=== PATIENT | male | born 1945 | race Caucasian/White ===

== ENCOUNTER → 2020-05-25 | Outpatient (CLI) | payer OTHER | LOC: HYPER 13:48 | PROVIDERS: ATTEND Emergency Medicine | DX: T84.53XA Infection and inflammatory reaction due to internal right knee prosthesis, initial encounter (principal); E11.622 Type 2 diabetes mellitus with other skin ulcer; L97.811 Non-pressure chronic ulcer of other part of right lower leg limited to breakdown of skin; E11.69 Type 2 diabetes mellitus with other specified complication; M86.651 Other chronic osteomyelitis, right thigh; I48.91 Unspecified atrial fibrillation; I10 Essential (primary) hypertension; Z79.84 Long term (current) use of oral hypoglycemic drugs; Z79.01 Long term (current) use of anticoagulants; Z96.652 Presence of left artificial knee joint; Y83.1 Surgical operation with implant of artificial internal device as the cause of abnormal reaction of the patient, or of later complication, without mention of misadventure at the time of the procedure; Y92.238 Other place in hospital as the place of occurrence of the external cause ==

== ENCOUNTER → 2020-06-05 | Outpatient (CLI) | payer OTHER | LOC: HYPER 08:56 | PROVIDERS: ATTEND Emergency Medicine Emergency Medical Services | DX: T84.53XD Infection and inflammatory reaction due to internal right knee prosthesis, subsequent encounter (principal); E11.69 Type 2 diabetes mellitus with other specified complication; M86.651 Other chronic osteomyelitis, right thigh; E11.622 Type 2 diabetes mellitus with other skin ulcer; L97.812 Non-pressure chronic ulcer of other part of right lower leg with fat layer exposed; L97.112 Non-pressure chronic ulcer of right thigh with fat layer exposed; I10 Essential (primary) hypertension; I48.0 Paroxysmal atrial fibrillation; Z79.84 Long term (current) use of oral hypoglycemic drugs; Z79.01 Long term (current) use of anticoagulants; Y83.1 Surgical operation with implant of artificial internal device as the cause of abnormal reaction of the patient, or of later complication, without mention of misadventure at the time of the procedure ==

== ENCOUNTER → 2020-06-06 | Outpatient (CLI) | payer OTHER | LOC: HYPER 08:14 | PROVIDERS: ATTEND Specialist | DX: T84.53XD Infection and inflammatory reaction due to internal right knee prosthesis, subsequent encounter (principal); E11.622 Type 2 diabetes mellitus with other skin ulcer; L97.811 Non-pressure chronic ulcer of other part of right lower leg limited to breakdown of skin; E11.69 Type 2 diabetes mellitus with other specified complication; M86.651 Other chronic osteomyelitis, right thigh; I10 Essential (primary) hypertension; I48.0 Paroxysmal atrial fibrillation; Z79.84 Long term (current) use of oral hypoglycemic drugs; Z79.01 Long term (current) use of anticoagulants ==

== ENCOUNTER → 2020-06-07 | Outpatient (CLI) | payer OTHER | LOC: HYPER 10:00 | PROVIDERS: ATTEND Emergency Medicine | DX: T84.53XD Infection and inflammatory reaction due to internal right knee prosthesis, subsequent encounter (principal); E11.622 Type 2 diabetes mellitus with other skin ulcer; L97.811 Non-pressure chronic ulcer of other part of right lower leg limited to breakdown of skin; E11.69 Type 2 diabetes mellitus with other specified complication; M86.651 Other chronic osteomyelitis, right thigh; I10 Essential (primary) hypertension; I48.0 Paroxysmal atrial fibrillation; Z79.84 Long term (current) use of oral hypoglycemic drugs; Z79.01 Long term (current) use of anticoagulants ==

== ENCOUNTER → 2020-06-08 | Outpatient (CLI) | payer OTHER | LOC: HYPER 17:26 | PROVIDERS: ATTEND Emergency Medicine | DX: T84.53XD Infection and inflammatory reaction due to internal right knee prosthesis, subsequent encounter (principal); E11.622 Type 2 diabetes mellitus with other skin ulcer; L97.811 Non-pressure chronic ulcer of other part of right lower leg limited to breakdown of skin; E11.69 Type 2 diabetes mellitus with other specified complication; M86.651 Other chronic osteomyelitis, right thigh; I10 Essential (primary) hypertension; I48.0 Paroxysmal atrial fibrillation; Z79.84 Long term (current) use of oral hypoglycemic drugs; Z79.01 Long term (current) use of anticoagulants ==

== ENCOUNTER → 2020-06-09 | Outpatient (CLI) | payer OTHER | LOC: HYPER 15:21 | PROVIDERS: ATTEND Emergency Medicine | DX: T84.53XD Infection and inflammatory reaction due to internal right knee prosthesis, subsequent encounter (principal); E11.622 Type 2 diabetes mellitus with other skin ulcer; L97.811 Non-pressure chronic ulcer of other part of right lower leg limited to breakdown of skin; E11.69 Type 2 diabetes mellitus with other specified complication; M86.651 Other chronic osteomyelitis, right thigh; I10 Essential (primary) hypertension; I48.0 Paroxysmal atrial fibrillation; Z79.84 Long term (current) use of oral hypoglycemic drugs; Z79.01 Long term (current) use of anticoagulants ==

== ENCOUNTER → 2020-06-12 | Outpatient (CLI) | payer OTHER | LOC: HYPER 10:00 | PROVIDERS: ATTEND Emergency Medicine Emergency Medical Services | DX: T84.53XD Infection and inflammatory reaction due to internal right knee prosthesis, subsequent encounter (principal); E11.622 Type 2 diabetes mellitus with other skin ulcer; L97.115 Non-pressure chronic ulcer of right thigh with muscle involvement without evidence of necrosis; L97.811 Non-pressure chronic ulcer of other part of right lower leg limited to breakdown of skin; E11.69 Type 2 diabetes mellitus with other specified complication; M86.651 Other chronic osteomyelitis, right thigh; I10 Essential (primary) hypertension; I48.91 Unspecified atrial fibrillation; Z79.84 Long term (current) use of oral hypoglycemic drugs; Z79.01 Long term (current) use of anticoagulants; Y83.1 Surgical operation with implant of artificial internal device as the cause of abnormal reaction of the patient, or of later complication, without mention of misadventure at the time of the procedure ==

== ENCOUNTER → 2020-06-13 | Outpatient (CLI) | payer OTHER | LOC: HYPER 10:22 | PROVIDERS: ATTEND Specialist | DX: T84.53XD Infection and inflammatory reaction due to internal right knee prosthesis, subsequent encounter (principal); E11.622 Type 2 diabetes mellitus with other skin ulcer; L97.811 Non-pressure chronic ulcer of other part of right lower leg limited to breakdown of skin; E11.69 Type 2 diabetes mellitus with other specified complication; M86.651 Other chronic osteomyelitis, right thigh; I10 Essential (primary) hypertension; I48.0 Paroxysmal atrial fibrillation; Z79.84 Long term (current) use of oral hypoglycemic drugs; Z79.01 Long term (current) use of anticoagulants ==

== ENCOUNTER → 2020-06-14 | Outpatient (CLI) | payer OTHER | LOC: HYPER 11:23 | PROVIDERS: ATTEND Emergency Medicine | DX: T84.53XD Infection and inflammatory reaction due to internal right knee prosthesis, subsequent encounter (principal); E11.622 Type 2 diabetes mellitus with other skin ulcer; L97.815 Non-pressure chronic ulcer of other part of right lower leg with muscle involvement without evidence of necrosis; E11.69 Type 2 diabetes mellitus with other specified complication; M86.651 Other chronic osteomyelitis, right thigh; I48.0 Paroxysmal atrial fibrillation; I10 Essential (primary) hypertension; Z79.84 Long term (current) use of oral hypoglycemic drugs; Z79.01 Long term (current) use of anticoagulants ==

== ENCOUNTER → 2020-06-15 | Outpatient (CLI) | payer OTHER | LOC: HYPER 12:06 | PROVIDERS: ATTEND Emergency Medicine | DX: T84.53XD Infection and inflammatory reaction due to internal right knee prosthesis, subsequent encounter (principal); E11.622 Type 2 diabetes mellitus with other skin ulcer; L97.815 Non-pressure chronic ulcer of other part of right lower leg with muscle involvement without evidence of necrosis; E11.69 Type 2 diabetes mellitus with other specified complication; M86.651 Other chronic osteomyelitis, right thigh; I48.0 Paroxysmal atrial fibrillation; I10 Essential (primary) hypertension; Z79.84 Long term (current) use of oral hypoglycemic drugs; Z79.01 Long term (current) use of anticoagulants ==

== ENCOUNTER → 2020-06-16 | Outpatient (CLI) | payer OTHER | LOC: HYPER 15:35 | PROVIDERS: ATTEND Emergency Medicine Emergency Medical Services | DX: T84.53XD Infection and inflammatory reaction due to internal right knee prosthesis, subsequent encounter (principal); E11.69 Type 2 diabetes mellitus with other specified complication; M86.651 Other chronic osteomyelitis, right thigh; E11.622 Type 2 diabetes mellitus with other skin ulcer; L97.811 Non-pressure chronic ulcer of other part of right lower leg limited to breakdown of skin; Z79.84 Long term (current) use of oral hypoglycemic drugs; Z79.01 Long term (current) use of anticoagulants; I10 Essential (primary) hypertension; I48.91 Unspecified atrial fibrillation; Y83.1 Surgical operation with implant of artificial internal device as the cause of abnormal reaction of the patient, or of later complication, without mention of misadventure at the time of the procedure ==

== ENCOUNTER → 2020-06-19 | Outpatient (CLI) | payer OTHER | LOC: HYPER 10:47 | PROVIDERS: ATTEND Emergency Medicine Emergency Medical Services | DX: T84.53XD Infection and inflammatory reaction due to internal right knee prosthesis, subsequent encounter (principal); E11.69 Type 2 diabetes mellitus with other specified complication; M86.651 Other chronic osteomyelitis, right thigh; E11.622 Type 2 diabetes mellitus with other skin ulcer; L97.811 Non-pressure chronic ulcer of other part of right lower leg limited to breakdown of skin; I10 Essential (primary) hypertension; I48.91 Unspecified atrial fibrillation; Z79.84 Long term (current) use of oral hypoglycemic drugs; Z79.01 Long term (current) use of anticoagulants; Y83.1 Surgical operation with implant of artificial internal device as the cause of abnormal reaction of the patient, or of later complication, without mention of misadventure at the time of the procedure ==

== ENCOUNTER → 2020-06-20 | Outpatient (CLI) | payer OTHER | LOC: HYPER 12:01 | PROVIDERS: ATTEND Specialist | DX: T84.53XD Infection and inflammatory reaction due to internal right knee prosthesis, subsequent encounter (principal); E11.69 Type 2 diabetes mellitus with other specified complication; M86.651 Other chronic osteomyelitis, right thigh; E11.622 Type 2 diabetes mellitus with other skin ulcer; L97.115 Non-pressure chronic ulcer of right thigh with muscle involvement without evidence of necrosis; I48.91 Unspecified atrial fibrillation; I10 Essential (primary) hypertension; Z79.01 Long term (current) use of anticoagulants; Z79.84 Long term (current) use of oral hypoglycemic drugs; Y83.1 Surgical operation with implant of artificial internal device as the cause of abnormal reaction of the patient, or of later complication, without mention of misadventure at the time of the procedure ==

== ENCOUNTER → 2020-06-21 | Outpatient (CLI) | payer OTHER | LOC: HYPER 15:39 | PROVIDERS: ATTEND Emergency Medicine | DX: T84.53XD Infection and inflammatory reaction due to internal right knee prosthesis, subsequent encounter (principal); E11.69 Type 2 diabetes mellitus with other specified complication; M86.651 Other chronic osteomyelitis, right thigh; E11.622 Type 2 diabetes mellitus with other skin ulcer; L97.115 Non-pressure chronic ulcer of right thigh with muscle involvement without evidence of necrosis; I48.91 Unspecified atrial fibrillation; I10 Essential (primary) hypertension; Z79.01 Long term (current) use of anticoagulants; Z79.84 Long term (current) use of oral hypoglycemic drugs; Y83.1 Surgical operation with implant of artificial internal device as the cause of abnormal reaction of the patient, or of later complication, without mention of misadventure at the time of the procedure ==

== ENCOUNTER → 2020-06-22 | Outpatient (CLI) | payer OTHER | LOC: HYPER 16:15 | PROVIDERS: ATTEND Emergency Medicine | DX: T84.53XD Infection and inflammatory reaction due to internal right knee prosthesis, subsequent encounter (principal); E11.69 Type 2 diabetes mellitus with other specified complication; M86.651 Other chronic osteomyelitis, right thigh; E11.622 Type 2 diabetes mellitus with other skin ulcer; L97.115 Non-pressure chronic ulcer of right thigh with muscle involvement without evidence of necrosis; I10 Essential (primary) hypertension; I48.91 Unspecified atrial fibrillation; Z79.01 Long term (current) use of anticoagulants; Z79.84 Long term (current) use of oral hypoglycemic drugs; Y83.1 Surgical operation with implant of artificial internal device as the cause of abnormal reaction of the patient, or of later complication, without mention of misadventure at the time of the procedure ==

== ENCOUNTER → 2020-06-23 | Outpatient (CLI) | payer OTHER | LOC: HYPER 15:43 | PROVIDERS: ATTEND Emergency Medicine Emergency Medical Services | DX: T84.53XD Infection and inflammatory reaction due to internal right knee prosthesis, subsequent encounter (principal); E11.69 Type 2 diabetes mellitus with other specified complication; M86.651 Other chronic osteomyelitis, right thigh; E11.622 Type 2 diabetes mellitus with other skin ulcer; L97.115 Non-pressure chronic ulcer of right thigh with muscle involvement without evidence of necrosis; I10 Essential (primary) hypertension; I48.91 Unspecified atrial fibrillation; Z79.84 Long term (current) use of oral hypoglycemic drugs; Z79.01 Long term (current) use of anticoagulants; Y83.1 Surgical operation with implant of artificial internal device as the cause of abnormal reaction of the patient, or of later complication, without mention of misadventure at the time of the procedure ==

== ENCOUNTER → 2020-06-26 | Outpatient (CLI) | payer OTHER | LOC: HYPER 11:58 | PROVIDERS: ATTEND Emergency Medicine Emergency Medical Services | DX: T84.53XD Infection and inflammatory reaction due to internal right knee prosthesis, subsequent encounter (principal); E11.69 Type 2 diabetes mellitus with other specified complication; M86.651 Other chronic osteomyelitis, right thigh; I48.91 Unspecified atrial fibrillation; Z79.84 Long term (current) use of oral hypoglycemic drugs; Z79.01 Long term (current) use of anticoagulants; Y83.1 Surgical operation with implant of artificial internal device as the cause of abnormal reaction of the patient, or of later complication, without mention of misadventure at the time of the procedure ==

== ENCOUNTER → 2020-06-28 | Outpatient (CLI) | payer OTHER | LOC: HYPER 10:51 | PROVIDERS: ATTEND Emergency Medicine | DX: T84.53XD Infection and inflammatory reaction due to internal right knee prosthesis, subsequent encounter (principal); E11.622 Type 2 diabetes mellitus with other skin ulcer; L97.115 Non-pressure chronic ulcer of right thigh with muscle involvement without evidence of necrosis; E11.69 Type 2 diabetes mellitus with other specified complication; M86.651 Other chronic osteomyelitis, right thigh; I48.0 Paroxysmal atrial fibrillation; I10 Essential (primary) hypertension; Z79.84 Long term (current) use of oral hypoglycemic drugs; Z79.01 Long term (current) use of anticoagulants; Y83.8 Other surgical procedures as the cause of abnormal reaction of the patient, or of later complication, without mention of misadventure at the time of the procedure ==

== ENCOUNTER → 2020-06-29 | Outpatient (CLI) | payer OTHER | LOC: HYPER 10:20 | PROVIDERS: ATTEND Emergency Medicine | DX: T84.53XD Infection and inflammatory reaction due to internal right knee prosthesis, subsequent encounter (principal); E11.622 Type 2 diabetes mellitus with other skin ulcer; L97.115 Non-pressure chronic ulcer of right thigh with muscle involvement without evidence of necrosis; E11.69 Type 2 diabetes mellitus with other specified complication; M86.651 Other chronic osteomyelitis, right thigh; I48.0 Paroxysmal atrial fibrillation; I10 Essential (primary) hypertension; Z79.84 Long term (current) use of oral hypoglycemic drugs; Z79.01 Long term (current) use of anticoagulants; Y83.8 Other surgical procedures as the cause of abnormal reaction of the patient, or of later complication, without mention of misadventure at the time of the procedure ==

== ENCOUNTER → 2020-06-30 | Outpatient (CLI) | payer OTHER | LOC: HYPER 10:15 | PROVIDERS: ATTEND Emergency Medicine Emergency Medical Services | DX: T84.53XD Infection and inflammatory reaction due to internal right knee prosthesis, subsequent encounter (principal); E11.69 Type 2 diabetes mellitus with other specified complication; M86.651 Other chronic osteomyelitis, right thigh; I10 Essential (primary) hypertension; I48.91 Unspecified atrial fibrillation; Z79.84 Long term (current) use of oral hypoglycemic drugs; Z79.01 Long term (current) use of anticoagulants; Y83.1 Surgical operation with implant of artificial internal device as the cause of abnormal reaction of the patient, or of later complication, without mention of misadventure at the time of the procedure ==

== ENCOUNTER → 2020-07-03 | Outpatient (CLI) | payer OTHER | LOC: HYPER 10:37 | PROVIDERS: ATTEND Emergency Medicine Emergency Medical Services | DX: T84.53XD Infection and inflammatory reaction due to internal right knee prosthesis, subsequent encounter (principal); E11.622 Type 2 diabetes mellitus with other skin ulcer; L97.811 Non-pressure chronic ulcer of other part of right lower leg limited to breakdown of skin; E11.69 Type 2 diabetes mellitus with other specified complication; M86.651 Other chronic osteomyelitis, right thigh; I48.0 Paroxysmal atrial fibrillation; I10 Essential (primary) hypertension; Z79.84 Long term (current) use of oral hypoglycemic drugs; Z79.01 Long term (current) use of anticoagulants ==

== ENCOUNTER → 2020-07-04 | Outpatient (CLI) | payer OTHER | LOC: HYPER 10:13 | PROVIDERS: ATTEND Specialist | DX: T84.53XD Infection and inflammatory reaction due to internal right knee prosthesis, subsequent encounter (principal); E11.69 Type 2 diabetes mellitus with other specified complication; M86.651 Other chronic osteomyelitis, right thigh; I10 Essential (primary) hypertension; I48.91 Unspecified atrial fibrillation; Z79.84 Long term (current) use of oral hypoglycemic drugs; Z79.01 Long term (current) use of anticoagulants; Y83.1 Surgical operation with implant of artificial internal device as the cause of abnormal reaction of the patient, or of later complication, without mention of misadventure at the time of the procedure ==

== ENCOUNTER → 2020-07-05 | Outpatient (CLI) | payer OTHER | LOC: HYPER 09:53 | PROVIDERS: ATTEND Emergency Medicine | DX: E11.69 Type 2 diabetes mellitus with other specified complication (principal); M86.651 Other chronic osteomyelitis, right thigh; T84.53XD Infection and inflammatory reaction due to internal right knee prosthesis, subsequent encounter; E11.622 Type 2 diabetes mellitus with other skin ulcer; L97.111 Non-pressure chronic ulcer of right thigh limited to breakdown of skin; I10 Essential (primary) hypertension; I48.0 Paroxysmal atrial fibrillation; Z79.84 Long term (current) use of oral hypoglycemic drugs; Z79.01 Long term (current) use of anticoagulants ==

== ENCOUNTER → 2020-07-06 | Outpatient (CLI) | payer OTHER | LOC: HYPER 14:33 | PROVIDERS: ATTEND Emergency Medicine | DX: E11.69 Type 2 diabetes mellitus with other specified complication (principal); M86.651 Other chronic osteomyelitis, right thigh; T84.53XD Infection and inflammatory reaction due to internal right knee prosthesis, subsequent encounter; E11.622 Type 2 diabetes mellitus with other skin ulcer; L97.111 Non-pressure chronic ulcer of right thigh limited to breakdown of skin; I10 Essential (primary) hypertension; I48.0 Paroxysmal atrial fibrillation; Z79.84 Long term (current) use of oral hypoglycemic drugs; Z79.01 Long term (current) use of anticoagulants ==

== ENCOUNTER → 2020-07-07 | Outpatient (CLI) | payer OTHER | LOC: HYPER 10:06 | PROVIDERS: ATTEND Emergency Medicine Emergency Medical Services | DX: E11.69 Type 2 diabetes mellitus with other specified complication (principal); M86.651 Other chronic osteomyelitis, right thigh; T84.53XD Infection and inflammatory reaction due to internal right knee prosthesis, subsequent encounter; I10 Essential (primary) hypertension; I48.91 Unspecified atrial fibrillation; Z79.84 Long term (current) use of oral hypoglycemic drugs; Z79.01 Long term (current) use of anticoagulants; Y83.1 Surgical operation with implant of artificial internal device as the cause of abnormal reaction of the patient, or of later complication, without mention of misadventure at the time of the procedure ==

== ENCOUNTER → 2020-07-10 | Outpatient (CLI) | payer OTHER | LOC: HYPER 10:18 | PROVIDERS: ATTEND Emergency Medicine | DX: E11.69 Type 2 diabetes mellitus with other specified complication (principal); M86.651 Other chronic osteomyelitis, right thigh; T84.53XD Infection and inflammatory reaction due to internal right knee prosthesis, subsequent encounter; E11.622 Type 2 diabetes mellitus with other skin ulcer; L97.811 Non-pressure chronic ulcer of other part of right lower leg limited to breakdown of skin; I10 Essential (primary) hypertension; I48.91 Unspecified atrial fibrillation; Z79.84 Long term (current) use of oral hypoglycemic drugs; Z79.01 Long term (current) use of anticoagulants; Y83.1 Surgical operation with implant of artificial internal device as the cause of abnormal reaction of the patient, or of later complication, without mention of misadventure at the time of the procedure ==

== ENCOUNTER → 2020-07-11 | Outpatient (CLI) | payer OTHER | LOC: HYPER 11:15 | PROVIDERS: ATTEND Specialist | DX: E11.69 Type 2 diabetes mellitus with other specified complication (principal); M86.651 Other chronic osteomyelitis, right thigh; T84.53XD Infection and inflammatory reaction due to internal right knee prosthesis, subsequent encounter; E11.622 Type 2 diabetes mellitus with other skin ulcer; L97.811 Non-pressure chronic ulcer of other part of right lower leg limited to breakdown of skin; I10 Essential (primary) hypertension; I48.91 Unspecified atrial fibrillation; Z79.84 Long term (current) use of oral hypoglycemic drugs; Z79.01 Long term (current) use of anticoagulants; Y83.1 Surgical operation with implant of artificial internal device as the cause of abnormal reaction of the patient, or of later complication, without mention of misadventure at the time of the procedure ==

== ENCOUNTER → 2020-07-12 | Outpatient (CLI) | payer OTHER | LOC: HYPER 10:42 | PROVIDERS: ATTEND Emergency Medicine | DX: E11.69 Type 2 diabetes mellitus with other specified complication (principal); M86.651 Other chronic osteomyelitis, right thigh; T84.53XD Infection and inflammatory reaction due to internal right knee prosthesis, subsequent encounter; E11.622 Type 2 diabetes mellitus with other skin ulcer; L97.811 Non-pressure chronic ulcer of other part of right lower leg limited to breakdown of skin; I10 Essential (primary) hypertension; I48.91 Unspecified atrial fibrillation; Z79.84 Long term (current) use of oral hypoglycemic drugs; Z79.01 Long term (current) use of anticoagulants; Y83.1 Surgical operation with implant of artificial internal device as the cause of abnormal reaction of the patient, or of later complication, without mention of misadventure at the time of the procedure ==

== ENCOUNTER → 2020-07-13 | Outpatient (CLI) | payer OTHER | LOC: HYPER 09:53 | PROVIDERS: ATTEND Emergency Medicine | DX: E11.69 Type 2 diabetes mellitus with other specified complication (principal); M86.651 Other chronic osteomyelitis, right thigh; T84.53XD Infection and inflammatory reaction due to internal right knee prosthesis, subsequent encounter; E11.622 Type 2 diabetes mellitus with other skin ulcer; L97.811 Non-pressure chronic ulcer of other part of right lower leg limited to breakdown of skin; I10 Essential (primary) hypertension; I48.91 Unspecified atrial fibrillation; Z79.84 Long term (current) use of oral hypoglycemic drugs; Z79.01 Long term (current) use of anticoagulants; Y83.1 Surgical operation with implant of artificial internal device as the cause of abnormal reaction of the patient, or of later complication, without mention of misadventure at the time of the procedure ==

== ENCOUNTER → 2020-07-14 | Outpatient (CLI) | payer OTHER | LOC: HYPER 12:51 | PROVIDERS: ATTEND Emergency Medicine | DX: E11.69 Type 2 diabetes mellitus with other specified complication (principal); M86.651 Other chronic osteomyelitis, right thigh; T84.53XD Infection and inflammatory reaction due to internal right knee prosthesis, subsequent encounter; I10 Essential (primary) hypertension; I48.91 Unspecified atrial fibrillation; Z79.84 Long term (current) use of oral hypoglycemic drugs; Z79.01 Long term (current) use of anticoagulants; Y83.1 Surgical operation with implant of artificial internal device as the cause of abnormal reaction of the patient, or of later complication, without mention of misadventure at the time of the procedure ==

== ENCOUNTER → 2020-07-17 | Outpatient (CLI) | payer OTHER | LOC: HYPER 15:20 | PROVIDERS: ATTEND Emergency Medicine Emergency Medical Services | DX: E11.69 Type 2 diabetes mellitus with other specified complication (principal); M86.651 Other chronic osteomyelitis, right thigh; T84.53XD Infection and inflammatory reaction due to internal right knee prosthesis, subsequent encounter; I10 Essential (primary) hypertension; I48.91 Unspecified atrial fibrillation; Z79.84 Long term (current) use of oral hypoglycemic drugs; Z79.01 Long term (current) use of anticoagulants; Y83.1 Surgical operation with implant of artificial internal device as the cause of abnormal reaction of the patient, or of later complication, without mention of misadventure at the time of the procedure ==

== ENCOUNTER → 2020-07-18 | Outpatient (CLI) | payer OTHER | LOC: HYPER 09:36 | PROVIDERS: ATTEND Specialist | DX: E11.69 Type 2 diabetes mellitus with other specified complication (principal); M86.651 Other chronic osteomyelitis, right thigh; T84.53XD Infection and inflammatory reaction due to internal right knee prosthesis, subsequent encounter; I48.0 Paroxysmal atrial fibrillation; I10 Essential (primary) hypertension; Z79.84 Long term (current) use of oral hypoglycemic drugs; Z79.01 Long term (current) use of anticoagulants; Y83.1 Surgical operation with implant of artificial internal device as the cause of abnormal reaction of the patient, or of later complication, without mention of misadventure at the time of the procedure ==

== ENCOUNTER → 2020-07-19 | Outpatient (CLI) | payer OTHER | LOC: HYPER 09:42 | PROVIDERS: ATTEND Emergency Medicine | DX: E11.69 Type 2 diabetes mellitus with other specified complication (principal); M86.651 Other chronic osteomyelitis, right thigh; T84.53XD Infection and inflammatory reaction due to internal right knee prosthesis, subsequent encounter; I48.0 Paroxysmal atrial fibrillation; I10 Essential (primary) hypertension; Z79.84 Long term (current) use of oral hypoglycemic drugs; Z79.01 Long term (current) use of anticoagulants; Y83.1 Surgical operation with implant of artificial internal device as the cause of abnormal reaction of the patient, or of later complication, without mention of misadventure at the time of the procedure ==

== ENCOUNTER → 2020-07-20 | Outpatient (CLI) | payer OTHER | LOC: HYPER 10:16 | PROVIDERS: ATTEND Emergency Medicine | DX: E11.69 Type 2 diabetes mellitus with other specified complication (principal); M86.651 Other chronic osteomyelitis, right thigh; T84.53XD Infection and inflammatory reaction due to internal right knee prosthesis, subsequent encounter; I10 Essential (primary) hypertension; I48.0 Paroxysmal atrial fibrillation; Z79.84 Long term (current) use of oral hypoglycemic drugs; Z79.01 Long term (current) use of anticoagulants; Y83.1 Surgical operation with implant of artificial internal device as the cause of abnormal reaction of the patient, or of later complication, without mention of misadventure at the time of the procedure ==

== ENCOUNTER → 2020-07-21 | Outpatient (CLI) | payer OTHER | LOC: HYPER 10:52 | PROVIDERS: ATTEND Emergency Medicine Emergency Medical Services | DX: E11.69 Type 2 diabetes mellitus with other specified complication (principal); M86.651 Other chronic osteomyelitis, right thigh; T84.53XD Infection and inflammatory reaction due to internal right knee prosthesis, subsequent encounter; I48.0 Paroxysmal atrial fibrillation; I10 Essential (primary) hypertension; Z79.84 Long term (current) use of oral hypoglycemic drugs; Z79.01 Long term (current) use of anticoagulants; Y83.1 Surgical operation with implant of artificial internal device as the cause of abnormal reaction of the patient, or of later complication, without mention of misadventure at the time of the procedure ==

== ENCOUNTER → 2020-07-24 | Outpatient (CLI) | payer OTHER | LOC: HYPER 09:15 | PROVIDERS: ATTEND Emergency Medicine Emergency Medical Services | DX: E11.69 Type 2 diabetes mellitus with other specified complication (principal); M86.651 Other chronic osteomyelitis, right thigh; T84.53XD Infection and inflammatory reaction due to internal right knee prosthesis, subsequent encounter; I10 Essential (primary) hypertension; I48.0 Paroxysmal atrial fibrillation; Z79.84 Long term (current) use of oral hypoglycemic drugs; Z79.01 Long term (current) use of anticoagulants; Y83.1 Surgical operation with implant of artificial internal device as the cause of abnormal reaction of the patient, or of later complication, without mention of misadventure at the time of the procedure ==

== ENCOUNTER → 2020-07-25 | Outpatient (CLI) | payer OTHER | LOC: HYPER 10:11 | PROVIDERS: ATTEND Specialist | DX: E11.69 Type 2 diabetes mellitus with other specified complication (principal); M86.651 Other chronic osteomyelitis, right thigh; T84.53XD Infection and inflammatory reaction due to internal right knee prosthesis, subsequent encounter; E11.622 Type 2 diabetes mellitus with other skin ulcer; L97.811 Non-pressure chronic ulcer of other part of right lower leg limited to breakdown of skin; I48.0 Paroxysmal atrial fibrillation; I10 Essential (primary) hypertension; Z79.84 Long term (current) use of oral hypoglycemic drugs; Z79.01 Long term (current) use of anticoagulants; Y83.1 Surgical operation with implant of artificial internal device as the cause of abnormal reaction of the patient, or of later complication, without mention of misadventure at the time of the procedure ==

== ENCOUNTER → 2020-07-26 | Outpatient (CLI) | payer OTHER | LOC: HYPER 10:01 | PROVIDERS: ATTEND Emergency Medicine | DX: E11.69 Type 2 diabetes mellitus with other specified complication (principal); M86.651 Other chronic osteomyelitis, right thigh; T84.53XD Infection and inflammatory reaction due to internal right knee prosthesis, subsequent encounter; E11.622 Type 2 diabetes mellitus with other skin ulcer; L97.811 Non-pressure chronic ulcer of other part of right lower leg limited to breakdown of skin; I48.0 Paroxysmal atrial fibrillation; I10 Essential (primary) hypertension; Z79.84 Long term (current) use of oral hypoglycemic drugs; Z79.01 Long term (current) use of anticoagulants; Y83.1 Surgical operation with implant of artificial internal device as the cause of abnormal reaction of the patient, or of later complication, without mention of misadventure at the time of the procedure ==

== ENCOUNTER → 2020-07-27 | Outpatient (CLI) | payer OTHER | LOC: HYPER 09:15 | PROVIDERS: ATTEND Emergency Medicine Emergency Medical Services | DX: E11.69 Type 2 diabetes mellitus with other specified complication (principal); M86.651 Other chronic osteomyelitis, right thigh; E11.622 Type 2 diabetes mellitus with other skin ulcer; L97.811 Non-pressure chronic ulcer of other part of right lower leg limited to breakdown of skin; T84.53XD Infection and inflammatory reaction due to internal right knee prosthesis, subsequent encounter; I10 Essential (primary) hypertension; I48.0 Paroxysmal atrial fibrillation; Z79.84 Long term (current) use of oral hypoglycemic drugs; Z79.01 Long term (current) use of anticoagulants; Y83.1 Surgical operation with implant of artificial internal device as the cause of abnormal reaction of the patient, or of later complication, without mention of misadventure at the time of the procedure ==

== ENCOUNTER → 2020-07-27 | Outpatient (CLI) | payer OTHER | LOC: HYPER 09:15 | PROVIDERS: ATTEND Emergency Medicine | DX: E11.69 Type 2 diabetes mellitus with other specified complication (principal); M86.651 Other chronic osteomyelitis, right thigh; E11.622 Type 2 diabetes mellitus with other skin ulcer; L97.811 Non-pressure chronic ulcer of other part of right lower leg limited to breakdown of skin; T84.53XD Infection and inflammatory reaction due to internal right knee prosthesis, subsequent encounter; I10 Essential (primary) hypertension; I48.0 Paroxysmal atrial fibrillation; Z79.84 Long term (current) use of oral hypoglycemic drugs; Z79.01 Long term (current) use of anticoagulants; Y83.1 Surgical operation with implant of artificial internal device as the cause of abnormal reaction of the patient, or of later complication, without mention of misadventure at the time of the procedure ==

== ENCOUNTER → 2020-08-09 | Outpatient (CLI) | payer OTHER | LOC: HYPER 09:45 | PROVIDERS: ATTEND Emergency Medicine | DX: T81.31XD Disruption of external operation (surgical) wound, not elsewhere classified, subsequent encounter (principal); T84.53XD Infection and inflammatory reaction due to internal right knee prosthesis, subsequent encounter; E11.622 Type 2 diabetes mellitus with other skin ulcer; L97.115 Non-pressure chronic ulcer of right thigh with muscle involvement without evidence of necrosis; E11.69 Type 2 diabetes mellitus with other specified complication; M86.651 Other chronic osteomyelitis, right thigh; I10 Essential (primary) hypertension; I48.0 Paroxysmal atrial fibrillation; Z79.84 Long term (current) use of oral hypoglycemic drugs; Z79.01 Long term (current) use of anticoagulants; Y83.8 Other surgical procedures as the cause of abnormal reaction of the patient, or of later complication, without mention of misadventure at the time of the procedure; Y83.1 Surgical operation with implant of artificial internal device as the cause of abnormal reaction of the patient, or of later complication, without mention of misadventure at the time of the procedure ==

== ENCOUNTER → 2020-08-23 | Outpatient (CLI) | payer OTHER | LOC: HYPER 09:50 | PROVIDERS: ATTEND Emergency Medicine | DX: T84.53XD Infection and inflammatory reaction due to internal right knee prosthesis, subsequent encounter (principal); E11.622 Type 2 diabetes mellitus with other skin ulcer; L97.115 Non-pressure chronic ulcer of right thigh with muscle involvement without evidence of necrosis; E11.69 Type 2 diabetes mellitus with other specified complication; M86.651 Other chronic osteomyelitis, right thigh; E66.9 Obesity, unspecified; I10 Essential (primary) hypertension; I48.0 Paroxysmal atrial fibrillation; Z79.84 Long term (current) use of oral hypoglycemic drugs; Z79.01 Long term (current) use of anticoagulants; Z68.30 Body mass index [BMI] 30.0-30.9, adult; Y83.1 Surgical operation with implant of artificial internal device as the cause of abnormal reaction of the patient, or of later complication, without mention of misadventure at the time of the procedure ==

== ENCOUNTER → 2020-09-06 | Outpatient (CLI) | payer OTHER | LOC: HYPER 12:02 | PROVIDERS: ATTEND Emergency Medicine | DX: T84.53XD Infection and inflammatory reaction due to internal right knee prosthesis, subsequent encounter (principal); E11.622 Type 2 diabetes mellitus with other skin ulcer; L97.115 Non-pressure chronic ulcer of right thigh with muscle involvement without evidence of necrosis; E11.69 Type 2 diabetes mellitus with other specified complication; M86.651 Other chronic osteomyelitis, right thigh; E66.9 Obesity, unspecified; I10 Essential (primary) hypertension; I48.0 Paroxysmal atrial fibrillation; Z79.84 Long term (current) use of oral hypoglycemic drugs; Z79.01 Long term (current) use of anticoagulants; Z68.30 Body mass index [BMI] 30.0-30.9, adult; Y83.1 Surgical operation with implant of artificial internal device as the cause of abnormal reaction of the patient, or of later complication, without mention of misadventure at the time of the procedure ==

== ENCOUNTER → 2020-09-13 | Outpatient (CLI) | payer OTHER | LOC: HYPER 08:58 | PROVIDERS: ATTEND Emergency Medicine | DX: T84.53XD Infection and inflammatory reaction due to internal right knee prosthesis, subsequent encounter (principal); E11.622 Type 2 diabetes mellitus with other skin ulcer; L97.115 Non-pressure chronic ulcer of right thigh with muscle involvement without evidence of necrosis; E11.69 Type 2 diabetes mellitus with other specified complication; M86.651 Other chronic osteomyelitis, right thigh; E66.9 Obesity, unspecified; I10 Essential (primary) hypertension; I48.0 Paroxysmal atrial fibrillation; Z79.84 Long term (current) use of oral hypoglycemic drugs; Z79.01 Long term (current) use of anticoagulants; Z68.30 Body mass index [BMI] 30.0-30.9, adult; Y83.1 Surgical operation with implant of artificial internal device as the cause of abnormal reaction of the patient, or of later complication, without mention of misadventure at the time of the procedure ==

== ENCOUNTER → 2020-09-28 | Outpatient (CLI) | payer OTHER | LOC: HYPER 09:37 | PROVIDERS: ATTEND Emergency Medicine | DX: T84.53XD Infection and inflammatory reaction due to internal right knee prosthesis, subsequent encounter (principal); E11.622 Type 2 diabetes mellitus with other skin ulcer; L97.115 Non-pressure chronic ulcer of right thigh with muscle involvement without evidence of necrosis; E11.69 Type 2 diabetes mellitus with other specified complication; M86.651 Other chronic osteomyelitis, right thigh; E66.9 Obesity, unspecified; I10 Essential (primary) hypertension; I48.0 Paroxysmal atrial fibrillation; Z79.84 Long term (current) use of oral hypoglycemic drugs; Z79.01 Long term (current) use of anticoagulants; Z68.30 Body mass index [BMI] 30.0-30.9, adult; Y83.1 Surgical operation with implant of artificial internal device as the cause of abnormal reaction of the patient, or of later complication, without mention of misadventure at the time of the procedure ==

== ENCOUNTER → 2020-12-04 | Outpatient (CLI) | payer OTHER | LOC: HYPER 14:44 | PROVIDERS: ATTEND Emergency Medicine | DX: T84.53XD Infection and inflammatory reaction due to internal right knee prosthesis, subsequent encounter (principal); E11.622 Type 2 diabetes mellitus with other skin ulcer; L97.115 Non-pressure chronic ulcer of right thigh with muscle involvement without evidence of necrosis; L97.812 Non-pressure chronic ulcer of other part of right lower leg with fat layer exposed; E11.69 Type 2 diabetes mellitus with other specified complication; M86.651 Other chronic osteomyelitis, right thigh; E66.9 Obesity, unspecified; I10 Essential (primary) hypertension; I48.0 Paroxysmal atrial fibrillation; Z79.84 Long term (current) use of oral hypoglycemic drugs; Z79.01 Long term (current) use of anticoagulants; Z68.30 Body mass index [BMI] 30.0-30.9, adult; Y83.1 Surgical operation with implant of artificial internal device as the cause of abnormal reaction of the patient, or of later complication, without mention of misadventure at the time of the procedure ==

== ENCOUNTER → 2020-12-11 | Outpatient (CLI) | payer OTHER | LOC: HYPER 12:32 | PROVIDERS: ATTEND Emergency Medicine | DX: T84.53XD Infection and inflammatory reaction due to internal right knee prosthesis, subsequent encounter (principal); E11.622 Type 2 diabetes mellitus with other skin ulcer; L97.812 Non-pressure chronic ulcer of other part of right lower leg with fat layer exposed; E11.69 Type 2 diabetes mellitus with other specified complication; M86.651 Other chronic osteomyelitis, right thigh; E66.9 Obesity, unspecified; I10 Essential (primary) hypertension; I48.0 Paroxysmal atrial fibrillation; Z79.84 Long term (current) use of oral hypoglycemic drugs; Z79.01 Long term (current) use of anticoagulants; Z68.30 Body mass index [BMI] 30.0-30.9, adult; Y83.1 Surgical operation with implant of artificial internal device as the cause of abnormal reaction of the patient, or of later complication, without mention of misadventure at the time of the procedure ==

== ENCOUNTER → 2020-12-26 | Outpatient (CLI) | payer OTHER | LOC: HYPER 09:13 | PROVIDERS: ATTEND Emergency Medicine | DX: T84.53XD Infection and inflammatory reaction due to internal right knee prosthesis, subsequent encounter (principal); E11.622 Type 2 diabetes mellitus with other skin ulcer; L97.812 Non-pressure chronic ulcer of other part of right lower leg with fat layer exposed; S81.001A Unspecified open wound, right knee, initial encounter; E11.69 Type 2 diabetes mellitus with other specified complication; M86.651 Other chronic osteomyelitis, right thigh; E66.9 Obesity, unspecified; I10 Essential (primary) hypertension; I48.0 Paroxysmal atrial fibrillation; Z79.84 Long term (current) use of oral hypoglycemic drugs; Z79.01 Long term (current) use of anticoagulants; Z68.30 Body mass index [BMI] 30.0-30.9, adult; X58.XXXA Exposure to other specified factors, initial encounter; Y93.89 Activity, other specified; Y92.89 Other specified places as the place of occurrence of the external cause; Y99.8 Other external cause status; Y83.1 Surgical operation with implant of artificial internal device as the cause of abnormal reaction of the patient, or of later complication, without mention of misadventure at the time of the procedure ==

== ENCOUNTER → 2021-01-09 | Outpatient (CLI) | payer OTHER | LOC: HYPER 09:10 | PROVIDERS: ATTEND Emergency Medicine | DX: T84.53XD Infection and inflammatory reaction due to internal right knee prosthesis, subsequent encounter (principal); E11.622 Type 2 diabetes mellitus with other skin ulcer; L97.812 Non-pressure chronic ulcer of other part of right lower leg with fat layer exposed; S81.001D Unspecified open wound, right knee, subsequent encounter; E11.69 Type 2 diabetes mellitus with other specified complication; M86.651 Other chronic osteomyelitis, right thigh; E66.9 Obesity, unspecified; I10 Essential (primary) hypertension; I48.0 Paroxysmal atrial fibrillation; Z79.84 Long term (current) use of oral hypoglycemic drugs; Z79.01 Long term (current) use of anticoagulants; Z68.30 Body mass index [BMI] 30.0-30.9, adult; X58.XXXD Exposure to other specified factors, subsequent encounter ==

== ENCOUNTER → 2021-01-17 | Outpatient (CLI) | payer OTHER | LOC: HYPER 09:12 | PROVIDERS: ATTEND Emergency Medicine | DX: T84.53XD Infection and inflammatory reaction due to internal right knee prosthesis, subsequent encounter (principal); E11.622 Type 2 diabetes mellitus with other skin ulcer; L97.812 Non-pressure chronic ulcer of other part of right lower leg with fat layer exposed; S81.001D Unspecified open wound, right knee, subsequent encounter; E11.69 Type 2 diabetes mellitus with other specified complication; M86.651 Other chronic osteomyelitis, right thigh; E66.9 Obesity, unspecified; I10 Essential (primary) hypertension; I48.0 Paroxysmal atrial fibrillation; Z79.84 Long term (current) use of oral hypoglycemic drugs; Z79.01 Long term (current) use of anticoagulants; Z68.30 Body mass index [BMI] 30.0-30.9, adult; X58.XXXD Exposure to other specified factors, subsequent encounter; Y83.8 Other surgical procedures as the cause of abnormal reaction of the patient, or of later complication, without mention of misadventure at the time of the procedure ==

== ENCOUNTER → 2021-01-31 | Outpatient (CLI) | payer OTHER | LOC: HYPER 14:48 | PROVIDERS: ATTEND Emergency Medicine | DX: T84.53XD Infection and inflammatory reaction due to internal right knee prosthesis, subsequent encounter (principal); E11.622 Type 2 diabetes mellitus with other skin ulcer; L97.812 Non-pressure chronic ulcer of other part of right lower leg with fat layer exposed; S81.001D Unspecified open wound, right knee, subsequent encounter; E11.69 Type 2 diabetes mellitus with other specified complication; M86.651 Other chronic osteomyelitis, right thigh; E66.9 Obesity, unspecified; I10 Essential (primary) hypertension; I48.0 Paroxysmal atrial fibrillation; Z79.84 Long term (current) use of oral hypoglycemic drugs; Z79.01 Long term (current) use of anticoagulants; Z68.30 Body mass index [BMI] 30.0-30.9, adult; X58.XXXD Exposure to other specified factors, subsequent encounter; Y83.1 Surgical operation with implant of artificial internal device as the cause of abnormal reaction of the patient, or of later complication, without mention of misadventure at the time of the procedure ==

== ENCOUNTER → 2021-02-14 | Outpatient (CLI) | payer OTHER | LOC: HYPER 07:53 | PROVIDERS: ATTEND Emergency Medicine | DX: T84.53XD Infection and inflammatory reaction due to internal right knee prosthesis, subsequent encounter (principal); E11.622 Type 2 diabetes mellitus with other skin ulcer; L97.812 Non-pressure chronic ulcer of other part of right lower leg with fat layer exposed; S81.001D Unspecified open wound, right knee, subsequent encounter; E11.69 Type 2 diabetes mellitus with other specified complication; M86.651 Other chronic osteomyelitis, right thigh; E66.9 Obesity, unspecified; I10 Essential (primary) hypertension; I48.0 Paroxysmal atrial fibrillation; Z79.84 Long term (current) use of oral hypoglycemic drugs; Z79.01 Long term (current) use of anticoagulants; Z68.30 Body mass index [BMI] 30.0-30.9, adult; X58.XXXD Exposure to other specified factors, subsequent encounter; Y83.1 Surgical operation with implant of artificial internal device as the cause of abnormal reaction of the patient, or of later complication, without mention of misadventure at the time of the procedure ==